=== PATIENT | male | born 1945 | race Hispanic/Latino ===

== ENCOUNTER 2017-07-31 10:26 | Emergency (ER) | payer OTHER, MEDICARE ==
[~2017-07-31 10:26] MED LIST: ASPI-1197 PO; ATOR20TA65 PO; ESOM40CA54 PO; FURO40TA7 PO; METO25TA6 PO; POTA10TA18 PO; calcium
[2017-07-31 11:09] LABS: BASOPHILS % (AUTO) 0.4 % (0.0-5.0); EOSINOPHILS % (AUTO) 4.3 % (0.0-8.0); HEMATOCRIT 36.5 % (42-54); LYMPHOCYTES % (AUTO) 10.1 % (21.0-51.0); MEAN CORPUSCULAR HEMOGLOBIN 26.4 pg (27.0-33.0); MEAN CORPUSCULAR HGB CONC 32.6 g/dL (32.0-36.0); MEAN CORPUSCULAR VOLUME 81.2 fL (79-99); MONOCYTES % (AUTO) 9.7 % (3.0-13.0); NEUTROPHILS % (AUTO) 75.5 % (40.0-77.0); PLATELET COUNT (AUTO) 211 K/uL (130-400); RED CELL DISTRIBUTION WIDTH 16.1 % (11.0-15.5); WHITE BLOOD COUNT (AUTO) 9.9 K/uL (4.8-10.8)
[2017-07-31 11:28] LABS: BILIRUBIN,TOTAL 0.4 mg/dL (0.2-1.0); CREATINE KINASE MB 2.8 ng/mL (0.5-3.6); TOTAL PROTEIN, SERUM 7.9 g/dL (6.0-8.3)
[2017-10-20] MEDS ORDERED: ATOR10TA69 PO (22:28)
[2017-10-20] MEDS ORDERED: UBID50CA23 PO (22:28)
[2017-10-20] MEDS ORDERED: CYAN1TAB3 PO (22:28)
[2017-10-20] MEDS ORDERED: OMEP40CA37 PO (22:28)
[2017-10-20] MEDS ORDERED: METO25TA6 PO (22:28)
== END 2017-07-31 16:00 | disposition home or self-care (01) ==
LOC: EDH 10:26
DX: R07.9 Chest pain, unspecified (principal); R06.02 Shortness of breath; E78.5 Hyperlipidemia, unspecified; Z87.891 Personal history of nicotine dependence
CPT/HCPCS: 36415; 71045; 80053; 82550; 82553; 83880; 84484; 85025; 93005